=== PATIENT | female | born 1965 | race Two or more races ===

== ENCOUNTER 2017-08-09 14:25 | Inpatient (IN) | payer OTHER ==
[~2017-08-09] VITALS: Ht 157.5 cm; Wt 70.6 kg
[2017-08-09 15:13] LABS: Basophils # (auto) 0.2 uL; Basophils % (auto) 1.8 % (0.0-2.0); Eosinophils # (auto) 0.8 uL; Eosinophils % (auto) 8.4 % (0.0-7.0); Hematocrit 38.7 % (36.0-46.0); Hemoglobin 12.8 g/dL (12.2-16.2); Lymphocytes # (auto) 3.1 uL; Lymphocytes % (auto) 33.6 % (10.0-50.0); Mean Corpuscular Hemoglobin 27.8 pg (28.0-32.0); Mean Corpuscular Hgb Conc. 33.2 g/dL (32.0-36.0); Mean Corpuscular Volume 83.9 fL (80.0-100.0); Mean Platelet Volume 7.4 fL (6.9-10.8); Monocytes # (auto) 0.6 uL; Monocytes % (auto) 6.2 % (0.0-12.0); Neutrophils # (auto) 4.6 uL; Nucleated Red Blood Cells % 0.1 %; Platelet Count (auto) 351 10^3/uL (140-450); Red Cell Distribution Width 16.5 % (11.8-14.3); White Blood Cell 9.1 10^3/uL (4.4-10.8)
[2017-08-09 15:33] LABS: Urine Bilirubin Negative (Negative); Urine Blood Negative /uL (Negative); Urine Color Yellow (Yellow); Urine Glucose Normal (Normal); Urine Ketone Negative (Negative); Urine Nitrite Negative (Negative); Urine RBC 1 /hpf (0 - 4); Urine Squamous Epithelial Cell FEW /hpf (<5); Urine Urobilinogen Normal (Negative); Urine pH 6.5 (5.0-8.0)
[2017-08-09] MEDS ORDERED: TEMAZEPAM 15 MG CAP PO PRN (16:15)
[2017-08-09] MEDS ORDERED: HYDROcodone-ACET 5/325MG TAB PO PRN (16:15)
[2017-08-09] MEDS ORDERED: ONDANSETRON HCL 4 MG/2 ML VIAL IV PRN (16:15)
[2017-08-09] MEDS ORDERED: DOCUSATE SOD 100 MG CAP PO PRN (16:15)
[2017-08-09] MEDS ORDERED: cefTRIAXone 1GM/50ML D5W 50 ML IV ONE (16:15)
[2017-08-09] MEDS ORDERED: NITROGLYCERIN 0.4 MG SL TAB SL PRN (16:15)
[2017-08-09] MEDS ORDERED: ACETAMINOPHEN 325 MG TAB PO PRN (16:15)
[2017-08-09] MEDS ORDERED: MORPHINE SULF INJ 2 MG/ML SYRINGE 1ML IV PRN ×2 (16:15)
[2017-08-09 16:26] LABS: Amylase 83 U/L (25-115)
[2017-08-09 16:56] LABS: Albumin 3.8 g/dL (3.4-5.0); BUN/Creatinine Ratio 11.1; Bilirubin, Total 0.4 mg/dL (0.2-1.0); Calcium 9.1 mg/dL (8.5-10.1); Potassium 3.2 mmol/L (3.5-5.1); Total Protein 8.4 g/dL (6.4-8.2)
[2017-08-09] MEDS ORDERED: MULTIPLE VITAMIN TAB PO ONE (17:00)
[2017-08-09] MEDS: SODIUM CHLORIDE 0.9% 1,000 ML IV SCH (18:21)
[2017-08-09 22:00] VITALS: BP_SYST 129; BP_SYST 90; BP_DIAS 46; BP_DIAS 75
[2017-08-09] MEDS: FAMOTIDINE 20 MG TAB PO SCH (22:18)
[2017-08-09 23:44] VITALS: BP 129/75
[2017-08-10] MEDS: SODIUM CHLORIDE 0.9% 1,000 ML IV SCH ×2 (00:28→08:30)
[2017-08-10 06:17] LABS: Basophils # (auto) 0.2 uL; Basophils % (auto) 2.2 % (0.0-2.0); Eosinophils # (auto) 0.7 uL; Eosinophils % (auto) 9.8 % (0.0-7.0); Hematocrit 35.4 % (36.0-46.0); Lymphocytes # (auto) 2.9 uL; Lymphocytes % (auto) 39.4 % (10.0-50.0); Mean Corpuscular Hemoglobin 28.3 pg (28.0-32.0); Mean Corpuscular Volume 83.3 fL (80.0-100.0); Mean Platelet Volume 7.9 fL (6.9-10.8); Monocytes # (auto) 0.6 uL; Monocytes % (auto) 7.8 % (0.0-12.0); Neutrophils % (auto) 40.8 % (37.0-80.0); Nucleated Red Blood Cells % 0.1 %; Platelet Count (auto) 291 10^3/uL (140-450); Red Cell Distribution Width 16.2 % (11.8-14.3); White Blood Cell 7.4 10^3/uL (4.4-10.8)
[2017-08-10 06:19] VITALS: BP 108/62
[2017-08-10 06:49] LABS: Calcium 8.4 mg/dL (8.5-10.1); Potassium 3.2 mmol/L (3.5-5.1)
[2017-08-10 06:53] LABS: Bilirubin, Total 0.3 mg/dL (0.2-1.0); Total Protein 6.7 g/dL (6.4-8.2)
[2017-08-10 08:18] VITALS: BP 100/59
[2017-08-10] MEDS: cefTRIAXone 1GM/50ML D5W 50 ML IV SCH (08:48)
[2017-08-10] MEDS: FAMOTIDINE 20 MG TAB PO SCH ×2 (08:48→21:25)
[2017-08-10] MEDS: MULTIPLE VITAMIN TAB PO SCH (08:48)
[2017-08-10] MEDS ORDERED: POTASSIUM CHL 20 Meq TABLET PO ONE (10:15)
[2017-08-10] MEDS ORDERED: LEVO500T21 PO (10:27)
[2017-08-10] MEDS: D5W/SOD CHL 0.45% 1,000 ML IV SCH ×2 (10:33→21:10)
[2017-08-10 13:31] VITALS: BP 120/49
[2017-08-10 16:55] VITALS: BP 114/67
[2017-08-10 22:03] VITALS: BP 141/78
[2017-08-11 05:01] VITALS: BP 116/60
[2017-08-11 08:02] VITALS: BP 121/75
[2017-08-11] MEDS: MULTIPLE VITAMIN TAB PO SCH (08:31)
[2017-08-11] MEDS: FAMOTIDINE 20 MG TAB PO SCH (08:31)
[2017-08-11] MEDS: cefTRIAXone 1GM/50ML D5W 50 ML IV SCH (08:36)
[2017-08-11] MEDS: D5W/SOD CHL 0.45% 1,000 ML IV SCH (10:29)
== END 2017-08-11 13:20 | disposition home or self-care (01) | DRG 690 ==
LOC: ER 14:25 → TELE 14:26 → TELE-WESTW 20:35
PROVIDERS: ADMIT Internal Medicine; ATTEND Nurse Practitioner Acute Care
DX: N39.0 Urinary tract infection, site not specified (principal); N18.3 Chronic kidney disease, stage 3 (moderate); E87.1 Hypo-osmolality and hyponatremia; R00.1 Bradycardia, unspecified; E87.6 Hypokalemia; E86.9 Volume depletion, unspecified; K52.9 Noninfective gastroenteritis and colitis, unspecified; I08.0 Rheumatic disorders of both mitral and aortic valves
CPT/HCPCS: 36415; 70450; 71010; 74176; 76705; 80053; 81001; 81025; 82150; 83690; 83735; 84484; 85025; 87086; 93005; 93306; 94761; J0696